=== PATIENT | female | born 2005 | race Caucasian/White ===

== ENCOUNTER 2024-10-24 07:43 | Outpatient (CLI) | payer BC | END 2024-10-24 07:44 | disposition home or self-care (01) | LOC: NM 07:43 | PROVIDERS: ATTEND Physician Assistant | DX: K21.9 Gastro-esophageal reflux disease without esophagitis (principal); R10.13 Epigastric pain; R14.0 Abdominal distension (gaseous); R10.33 Periumbilical pain | CPT/HCPCS: 78264; A9541 ==